=== PATIENT | female | born 1980 | race Caucasian/White ===

== ENCOUNTER 2016-11-07 19:13 | Emergency (ER) | payer SELFPAY ==
[~2016-11-07] VITALS: Ht 162.6 cm; Wt 74.4 kg
[2016-11-07 19:30] VITALS: BP 9/70
[2016-11-07] MEDS ORDERED: IBUPROFEN 600 MG TAB PO ONE (22:00)
[2016-11-07] MEDS ORDERED: PROMETHAZINE HCL 25 MG/ML 1ML IM ONE (22:45)
[2016-11-07] MEDS ORDERED: HYDROmorphone HCL 2 MG/ML VL IM ONE (22:45)
== END 2016-11-07 23:17 | disposition home or self-care (01) ==
LOC: ER 19:13
DX: S43.421A Sprain of right rotator cuff capsule, initial encounter (principal); Z88.8 Allergy status to other drugs, medicaments and biological substances; X50.0XXA Overexertion from strenuous movement or load, initial encounter; Y93.89 Activity, other specified; Y99.8 Other external cause status; Y92.89 Other specified places as the place of occurrence of the external cause
CPT/HCPCS: 73030; 81025; 96372; 99285; J1170; J2550